=== PATIENT | male | born 1975 | race Caucasian/White ===

== ENCOUNTER 2017-02-17 06:59 | Inpatient (IN) | payer MEDICAID ==
[~2017-02-17] VITALS: Ht 185.4 cm; Wt 107.1 kg
[~2017-02-17 06:59] MED LIST: AMLO10TA2 PO; ATOR10TA PO; BACL20TA PO; BENA40TA7 PO; BUP100T PO; CARI-316 PO; CARV25TA PO; CARV25TA55 PO; CLOP75TA28 PO; DIPH25TA26 PO; GEMF600T3 PO; LATA0.00 OP; LITH300C3 PO; LOR05T PO; MECL25CH20 PO; MELA10TA3 PO; METO10TA3 PO; MILK250C2 PO; OMEP20CA74 PO; OXCA600T3 PO; PAR20T PO; PREG100C PO; ROPI0.5T18 PO; TRAZ100T2 PO
[2017-02-17] MEDS ORDERED: SODIUM CHLORIDE 0.9% 500 ML IVB ONE (07:08)
[2017-02-17] MEDS ORDERED: LEVOFLOXACIN 500MG 100 ML IV ONE (07:15)
[2017-02-17 07:41] LABS: Basophils # (auto) 0 uL; Basophils % (auto) 0.3 % (0.0-2.0); CONDITION Y; Eosinophils # (auto) 0.1 uL; Eosinophils % (auto) 1.1 % (0.0-7.0); Hematocrit 27.8 % (41.0-53.0); Hemoglobin 9.1 g/dL (13.5-17.5); Lymphocytes % (auto) 25.9 % (10.0-50.0); Mean Corpuscular Hemoglobin 28.1 pg (28.0-32.0); Mean Corpuscular Hgb Conc. 32.6 g/dL (32.0-36.0); Mean Corpuscular Volume 86.1 fL (80.0-100.0); Mean Platelet Volume 7.7 fL (7.4-10.4); Monocytes # (auto) 0.7 uL; Monocytes % (auto) 6.4 % (0.0-12.0); Neutrophils # (auto) 7.6 uL; Neutrophils % (auto) 66.3 % (37.0-80.0); Platelet Count (auto) 426 10^3/uL (140-450); Red Cell Distribution Width 15.8 % (11.6-16.0); White Blood Cell 11.5 10^3/uL (4.4-10.8)
[2017-02-17 07:57] LABS: INR 1.05 (0.9-1.15); Partial Thromboplastin Time 28.5 sec (22.64-33.71); Prothrombin Time 11.5 sec (9.37-12.3)
[2017-02-17 08:01] LABS: Albumin 2.2 g/dL (3.4-5.0); Anion Gap 9 (5-15); Aspartate Aminotransferase 15 U/L (15-37); BUN/Creatinine Ratio 21.6; Blood Urea Nitrogen 30 mg/dL (7-18); Calcium 8.6 mg/dL (8.5-10.1); Carbon Dioxide 25 mmol/L (21-32); Chloride 109 mmol/L (98-107); GFR African American 72 mL/min; GFR Non-African American 60 mL/min; Glucose 146 mg/dL (74-106); Magnesium 2.6 mg/dL (1.6-2.6); Potassium 5.3 mmol/L (3.5-5.1); Sodium 143 mmol/L (136-145)
[2017-02-17 08:16] LABS: Alkaline Phosphatase 162 U/L (45-117); Bilirubin, Total 0.3 mg/dL (0.2-1.0); Total Protein 8.5 g/dL (6.4-8.2)
[2017-02-17 08:28] LABS: Urine Bilirubin Negative (Negative); Urine Blood Negative /uL (Negative); Urine Color Yellow (Yellow); Urine Glucose Normal (Normal); Urine Hyaline Cast FEW /lpf (0 - 2); Urine Ketone Negative (Negative); Urine Nitrite Negative (Negative); Urine RBC 5 /hpf (0 - 3); Urine Squamous Epithelial Cell FEW /hpf (<5); Urine pH 5.5 (5.0-8.0)
[2017-02-17] MEDS ORDERED: MELATONIN PYRIDOXINE 5 MG PO PRN (08:45)
[2017-02-17] MEDS ORDERED: cefTRIAXone 1GM/50ML D5W 50 ML IV ONE (08:45)
[2017-02-17] MEDS ORDERED: LACTULOSE 20Gm/30ML SOLN PO PRN (08:45)
[2017-02-17] MEDS ORDERED: LORazepam 0.5 MG TAB PO PRN (08:45)
[2017-02-17] MEDS ORDERED: DEXTROSE (50%) 50ML SYRG IV PRN (08:45)
[2017-02-17] MEDS ORDERED: ACETAMINOPHEN 500 MG TAB PO PRN (08:45)
[2017-02-17] MEDS ORDERED: SODIUM POLYSTYRENE SULF 15GM/60ML SUSP PO ONE (08:45)
[2017-02-17] MEDS ORDERED: HYDROcodone-ACET 5/325MG TAB PO PRN (08:45)
[2017-02-17] MEDS ORDERED: TEMAZEPAM 15 MG CAP PO PRN (08:45)
[2017-02-17] MEDS ORDERED: MORPHINE SULFATE 4 MG/ML SYRG IV PRN (08:45)
[2017-02-17] MEDS ORDERED: ALBUTEROL SULF 2.5 MG/0.5ML(0.5%) NEB SOLN NEB PRN (08:45)
[2017-02-17] MEDS: SODIUM CHLORIDE 0.9% 1,000 ML IV SCH ×2 (09:26→17:56)
[2017-02-17] MEDS: CLINDAMYCIN 600MG IV 50 ML IV SCH ×2 (09:38→17:56)
[2017-02-17] MEDS: CARVEDILOL 12.5 MG TAB PO SCH ×2 (09:55→22:00)
[2017-02-17] MEDS: LITHIUM CARBONATE 300 MG TAB PO SCH ×2 (09:55→22:00)
[2017-02-17] MEDS: PANTOPRAZOLE 40 MG TAB PO SCH (09:56)
[2017-02-17] MEDS: amLODIPine BESYLATE 5 MG TAB PO SCH (09:56)
[2017-02-17] MEDS: buPROPion HCL 100 MG TAB PO SCH ×2 (09:56→22:28)
[2017-02-17] MEDS: PARoxetine 20 MG TAB PO SCH (09:56)
[2017-02-17] MEDS: OXcarbazepine 300 MG TAB PO SCH ×2 (09:56→22:28)
[2017-02-17] MEDS: PREGABALIN 25 MG CAP PO SCH ×2 (09:56→22:30)
[2017-02-17] MEDS: CLOPIDOGREL BISULFATE 75 MG TAB PO SCH (09:56)
[2017-02-17] MEDS: ENOXAPARIN SOD 40 MG/0.4 ML SYRINGE SC SCH (09:56)
[2017-02-17] MEDS: GEMFIBROZIL 600 MG TAB PO SCH ×2 (09:56→22:27)
[2017-02-17] MEDS ORDERED: PATIENTS OWN MEDICATION (Amlodipine Besylate 10 MG) PO SCH (10:00)
[2017-02-17] MEDS ORDERED: PATIENTS OWN MEDICATION (Carvedilol (Coreg) 25 MG) PO SCH (10:00)
[2017-02-17] MEDS ORDERED: OXCARBAZEPINE 600 MG PO SCH (10:00)
[2017-02-17] MEDS ORDERED: PATIENTS OWN MEDICATION (Benazepril Hcl 40 MG) PO SCH ×2 (10:00)
[2017-02-17] MEDS ORDERED: PREGABALIN 100 MG PO SCH (10:00)
[2017-02-17] MEDS ORDERED: LITHIUM CARBONATE 300 MG PO SCH (10:00)
[2017-02-17] MEDS ORDERED: PATIENTS OWN MEDICATION (Atorvastatin Calcium (Lipitor) 10 MG) PO SCH (10:00)
[2017-02-17] MEDS: ACCU-CHEK COMFORT CURVE STRIP VI SCH ×3 (12:01→22:00)
[2017-02-17] MEDS: InsuLIN REG 1unit/0.01ml Soln (100units/ml) SC SCH ×3 (12:11→23:01)
[2017-02-17 13:10] VITALS: BP 120/71
[2017-02-17 14:02] LABS: BUN/Creatinine Ratio 20.5; Calcium 8.4 mg/dL (8.5-10.1); Potassium 5.1 mmol/L (3.5-5.1)
[2017-02-17 16:52] VITALS: BP 142/75
[2017-02-17 18:32] LABS: Hematocrit 27.9 % (41.0-53.0); Hemoglobin 9.2 g/dL (13.5-17.5)
[2017-02-17 21:30] VITALS: BP 126/71
[2017-02-17] MEDS: LATANOPROST 0.005 % OPTH(EYE) SOL 2.5ML OP SCH (22:00)
[2017-02-17] MEDS: ROPINIROLE 0.5 MG PO SCH (22:00)
[2017-02-17] MEDS: ATORVASTATIN 20 MG TAB PO SCH (22:28)
[2017-02-18 01:23] LABS: Hemoglobin 8.5 g/dL (13.5-17.5)
[2017-02-18 01:34] VITALS: BP 126/71
[2017-02-18] MEDS: CLINDAMYCIN 600MG IV 50 ML IV SCH ×3 (02:05→17:22)
[2017-02-18] MEDS: SODIUM CHLORIDE 0.9% 1,000 ML IV SCH ×2 (04:44→16:44)
[2017-02-18 05:00] VITALS: BP 135/73
[2017-02-18 06:08] LABS: Basophils # (auto) 0.1 uL; Basophils % (auto) 0.8 % (0.0-2.0); CONDITION Y; Eosinophils # (auto) 0.2 uL; Hematocrit 27.7 % (41.0-53.0); Hemoglobin 9.1 g/dL (13.5-17.5); Lymphocytes # (auto) 3.2 uL; Lymphocytes % (auto) 38.6 % (10.0-50.0); Mean Corpuscular Hemoglobin 28.1 pg (28.0-32.0); Mean Corpuscular Hgb Conc. 32.8 g/dL (32.0-36.0); Mean Corpuscular Volume 85.6 fL (80.0-100.0); Mean Platelet Volume 7.6 fL (7.4-10.4); Monocytes # (auto) 0.7 uL; Monocytes % (auto) 8.2 % (0.0-12.0); Neutrophils # (auto) 4.1 uL; Neutrophils % (auto) 50.4 % (37.0-80.0); Platelet Count (auto) 364 10^3/uL (140-450); Red Cell Distribution Width 15.8 % (11.6-16.0); White Blood Cell 8.2 10^3/uL (4.4-10.8)
[2017-02-18] MEDS: ACCU-CHEK COMFORT CURVE STRIP VI SCH ×4 (06:23→21:34)
[2017-02-18] MEDS: LEVOFLOXACIN 500MG 100 ML IV SCH (06:23)
[2017-02-18] MEDS: InsuLIN REG 1unit/0.01ml Soln (100units/ml) SC SCH ×4 (06:23→21:54)
[2017-02-18 06:48] LABS: BUN/Creatinine Ratio 21.1; Bilirubin, Total 0.3 mg/dL (0.2-1.0); Calcium 8.4 mg/dL (8.5-10.1); Potassium 4.3 mmol/L (3.5-5.1); Total Protein 7.5 g/dL (6.4-8.2)
[2017-02-18 09:00] VITALS: BP 150/75
[2017-02-18] MEDS ORDERED: cefTRIAXone 1GM/50ML D5W 50 ML IV SCH (09:00)
[2017-02-18] MEDS: LITHIUM CARBONATE 300 MG TAB PO SCH ×3 (10:00→21:32)
[2017-02-18] MEDS: ENOXAPARIN SOD 40 MG/0.4 ML SYRINGE SC SCH (10:11)
[2017-02-18] MEDS: buPROPion HCL 100 MG TAB PO SCH ×2 (10:12→21:33)
[2017-02-18] MEDS: PREGABALIN 25 MG CAP PO SCH ×2 (10:12→21:33)
[2017-02-18] MEDS: PARoxetine 20 MG TAB PO SCH (10:12)
[2017-02-18] MEDS: PANTOPRAZOLE 40 MG TAB PO SCH (10:12)
[2017-02-18] MEDS: OXcarbazepine 300 MG TAB PO SCH ×2 (10:12→21:33)
[2017-02-18] MEDS: GEMFIBROZIL 600 MG TAB PO SCH ×2 (10:12→21:33)
[2017-02-18] MEDS: CARVEDILOL 12.5 MG TAB PO SCH ×2 (10:13→21:32)
[2017-02-18] MEDS: amLODIPine BESYLATE 5 MG TAB PO SCH (10:14)
[2017-02-18] MEDS: CLOPIDOGREL BISULFATE 75 MG TAB PO SCH (10:20)
[2017-02-18] MEDS: BUDESONIDE (INHALATION) 0.5 MG/2 ML NEB NEB SCH ×2 (10:40→18:26)
[2017-02-18 13:00] VITALS: BP 157/82
[2017-02-18 16:58] VITALS: BP 139/78
[2017-02-18] MEDS: LATANOPROST 0.005 % OPTH(EYE) SOL 2.5ML OP SCH (21:32)
[2017-02-18] MEDS: ROPINIROLE 0.5 MG PO SCH (21:32)
[2017-02-18 22:00] VITALS: BP 144/77
[2017-02-19] MEDS: SODIUM CHLORIDE 0.9% 1,000 ML IV SCH ×3 (00:22→21:29)
[2017-02-19] MEDS: CLINDAMYCIN 600MG IV 50 ML IV SCH ×2 (02:56→09:27)
[2017-02-19 05:59] VITALS: BP 149/76
[2017-02-19] MEDS: ACCU-CHEK COMFORT CURVE STRIP VI SCH ×4 (06:30→22:16)
[2017-02-19] MEDS: LEVOFLOXACIN 500MG 100 ML IV SCH (06:30)
[2017-02-19] MEDS: BUDESONIDE (INHALATION) 0.5 MG/2 ML NEB NEB SCH (06:58)
[2017-02-19 07:20] LABS: Basophils # (auto) 0.1 uL; Basophils % (auto) 0.6 % (0.0-2.0); CONDITION Y; Eosinophils # (auto) 0.2 uL; Hematocrit 28.6 % (41.0-53.0); Hemoglobin 9.4 g/dL (13.5-17.5); Lymphocytes # (auto) 2.9 uL; Lymphocytes % (auto) 30.7 % (10.0-50.0); Mean Corpuscular Hemoglobin 27.9 pg (28.0-32.0); Mean Corpuscular Hgb Conc. 32.8 g/dL (32.0-36.0); Mean Corpuscular Volume 85.1 fL (80.0-100.0); Monocytes # (auto) 0.6 uL; Monocytes % (auto) 6.3 % (0.0-12.0); Neutrophils # (auto) 5.7 uL; Neutrophils % (auto) 60.4 % (37.0-80.0); Platelet Count (auto) 359 10^3/uL (140-450); Red Cell Distribution Width 15.4 % (11.6-16.0); White Blood Cell 9.5 10^3/uL (4.4-10.8)
[2017-02-19 07:44] LABS: Albumin 2.1 g/dL (3.4-5.0); BUN/Creatinine Ratio 13.5; Bilirubin, Total 0.2 mg/dL (0.2-1.0); Calcium 8.3 mg/dL (8.5-10.1); Potassium 4.2 mmol/L (3.5-5.1); Total Protein 7.8 g/dL (6.4-8.2)
[2017-02-19 08:00] VITALS: BP 158/86
[2017-02-19 09:00] VITALS: BP 158/86
[2017-02-19] MEDS: CARVEDILOL 12.5 MG TAB PO SCH ×2 (09:28→22:14)
[2017-02-19] MEDS: buPROPion HCL 100 MG TAB PO SCH ×2 (09:29→22:16)
[2017-02-19] MEDS: OXcarbazepine 300 MG TAB PO SCH ×2 (09:29→22:12)
[2017-02-19] MEDS: BENAZEPRIL HCL 10 MG TAB PO SCH (09:29)
[2017-02-19] MEDS: PARoxetine 20 MG TAB PO SCH (09:30)
[2017-02-19] MEDS: CLOPIDOGREL BISULFATE 75 MG TAB PO SCH (09:30)
[2017-02-19] MEDS: PANTOPRAZOLE 40 MG TAB PO SCH (09:30)
[2017-02-19] MEDS: GEMFIBROZIL 600 MG TAB PO SCH ×2 (09:30→22:14)
[2017-02-19] MEDS: amLODIPine BESYLATE 5 MG TAB PO SCH (09:31)
[2017-02-19] MEDS: LITHIUM CARBONATE 300 MG TAB PO SCH ×2 (09:33→21:30)
[2017-02-19] MEDS: PREGABALIN 25 MG CAP PO SCH ×2 (09:33→22:08)
[2017-02-19] MEDS: ENOXAPARIN SOD 40 MG/0.4 ML SYRINGE SC SCH (09:34)
[2017-02-19] MEDS: PROMETHAZINE HCL 25 MG/ML 1ML IV PRN ×3 (11:34→21:29)
[2017-02-19] MEDS: InsuLIN REG 1unit/0.01ml Soln (100units/ml) SC SCH ×4 (12:40→22:16)
[2017-02-19 13:00] VITALS: BP 162/86
[2017-02-19 17:00] VITALS: BP 158/86
[2017-02-19] MEDS: PRO-STAT 64 30ML PO SCH (17:02)
[2017-02-19] MEDS: ROPINIROLE 0.5 MG PO SCH (21:29)
[2017-02-19] MEDS: LATANOPROST 0.005 % OPTH(EYE) SOL 2.5ML OP SCH (21:30)
[2017-02-19] MEDS: ASCORBIC ACID 500 MG TAB PO SCH (22:12)
[2017-02-19] MEDS: ATORVASTATIN 20 MG TAB PO SCH (22:16)
[2017-02-19 22:23] VITALS: BP 163/86
[2017-02-20] MEDS: BUDESONIDE (INHALATION) 0.5 MG/2 ML NEB NEB SCH ×3 (00:51→22:13)
[2017-02-20 05:33] VITALS: BP 139/74
[2017-02-20] MEDS: ACCU-CHEK COMFORT CURVE STRIP VI SCH ×4 (06:29→22:16)
[2017-02-20] MEDS: SODIUM CHLORIDE 0.9% 1,000 ML IV SCH ×2 (06:29→17:52)
[2017-02-20] MEDS: InsuLIN REG 1unit/0.01ml Soln (100units/ml) SC SCH ×4 (06:30→22:00)
[2017-02-20] MEDS: LEVOFLOXACIN 500MG 100 ML IV SCH (06:34)
[2017-02-20 08:00] VITALS: BP 142/79
[2017-02-20] MEDS: PRO-STAT 64 30ML PO SCH ×2 (08:02→18:09)
[2017-02-20] MEDS: PREGABALIN 25 MG CAP PO SCH ×2 (09:40→22:16)
[2017-02-20] MEDS: MULTIPLE VITAMIN TAB PO SCH (09:41)
[2017-02-20] MEDS: OXcarbazepine 300 MG TAB PO SCH ×2 (09:41→22:16)
[2017-02-20] MEDS: CLOPIDOGREL BISULFATE 75 MG TAB PO SCH (09:41)
[2017-02-20] MEDS: BENAZEPRIL HCL 10 MG TAB PO SCH (09:41)
[2017-02-20] MEDS: GEMFIBROZIL 600 MG TAB PO SCH ×2 (09:41→22:17)
[2017-02-20] MEDS: ASCORBIC ACID 500 MG TAB PO SCH ×2 (09:41→22:16)
[2017-02-20] MEDS: buPROPion HCL 100 MG TAB PO SCH ×2 (09:42→22:16)
[2017-02-20] MEDS: CARVEDILOL 12.5 MG TAB PO SCH ×2 (09:42→22:16)
[2017-02-20] MEDS: PARoxetine 20 MG TAB PO SCH (09:42)
[2017-02-20] MEDS: PANTOPRAZOLE 40 MG TAB PO SCH (09:43)
[2017-02-20] MEDS: ENOXAPARIN SOD 40 MG/0.4 ML SYRINGE SC SCH (09:43)
[2017-02-20] MEDS: amLODIPine BESYLATE 5 MG TAB PO SCH (09:43)
[2017-02-20] MEDS: LITHIUM CARBONATE 300 MG TAB PO SCH ×2 (09:46→22:00)
[2017-02-20 12:00] VITALS: BP 171/86
[2017-02-20] MEDS ORDERED: cefTRIAXone 1GM/50ML D5W 50 ML IV ONE (15:45)
[2017-02-20 17:04] VITALS: BP 166/80
[2017-02-20 22:00] VITALS: BP 152/68
[2017-02-20] MEDS: LATANOPROST 0.005 % OPTH(EYE) SOL 2.5ML OP SCH (22:00)
[2017-02-20] MEDS: ROPINIROLE 0.5 MG PO SCH (22:00)
[2017-02-21 05:30] VITALS: BP 144/78
[2017-02-21] MEDS: SODIUM CHLORIDE 0.9% 1,000 ML IV SCH ×2 (05:43→12:44)
[2017-02-21] MEDS: ACCU-CHEK COMFORT CURVE STRIP VI SCH ×2 (07:00→12:59)
[2017-02-21] MEDS: InsuLIN REG 1unit/0.01ml Soln (100units/ml) SC SCH ×2 (07:00→12:59)
[2017-02-21 09:00] VITALS: BP 150/81
[2017-02-21] MEDS ORDERED: cefTRIAXone 1GM/50ML D5W 50 ML IV SCH (09:00)
[2017-02-21] MEDS: LITHIUM CARBONATE 300 MG TAB PO SCH (10:00)
[2017-02-21] MEDS: BUDESONIDE (INHALATION) 0.5 MG/2 ML NEB NEB SCH (10:28)
[2017-02-21] MEDS: GEMFIBROZIL 600 MG TAB PO SCH (10:30)
[2017-02-21] MEDS: PREGABALIN 25 MG CAP PO SCH (10:32)
[2017-02-21] MEDS: PANTOPRAZOLE 40 MG TAB PO SCH (10:32)
[2017-02-21] MEDS: MULTIPLE VITAMIN TAB PO SCH (10:32)
[2017-02-21] MEDS: BENAZEPRIL HCL 10 MG TAB PO SCH (10:34)
[2017-02-21] MEDS: OXcarbazepine 300 MG TAB PO SCH (10:34)
[2017-02-21] MEDS: ASCORBIC ACID 500 MG TAB PO SCH (10:35)
[2017-02-21] MEDS: CLOPIDOGREL BISULFATE 75 MG TAB PO SCH (10:35)
[2017-02-21] MEDS: PARoxetine 20 MG TAB PO SCH (10:35)
[2017-02-21] MEDS: amLODIPine BESYLATE 5 MG TAB PO SCH (10:36)
[2017-02-21] MEDS: buPROPion HCL 100 MG TAB PO SCH (10:36)
[2017-02-21] MEDS: CARVEDILOL 12.5 MG TAB PO SCH (10:36)
[2017-02-21] MEDS: ENOXAPARIN SOD 40 MG/0.4 ML SYRINGE SC SCH (10:37)
[2017-02-21] MEDS: PRO-STAT 64 30ML PO SCH (10:37)
== END 2017-02-21 12:50 | DRG 249 ==
LOC: ER 07:00 → OVERFLOW 07:01 → WEST WING 10:09 → TELE-WESTW 02-18 00:40
PROVIDERS: ADMIT Internal Medicine; ATTEND Internal Medicine
DX: K52.9 Noninfective gastroenteritis and colitis, unspecified (principal); I11.0 Hypertensive heart disease with heart failure; E11.40 Type 2 diabetes mellitus with diabetic neuropathy, unspecified; I50.9 Heart failure, unspecified; L89.523 Pressure ulcer of left ankle, stage 3; E87.8 Other disorders of electrolyte and fluid balance, not elsewhere classified; E86.0 Dehydration; D63.8 Anemia in other chronic diseases classified elsewhere; E87.5 Hyperkalemia; M54.9 Dorsalgia, unspecified; E78.5 Hyperlipidemia, unspecified; N39.0 Urinary tract infection, site not specified; F31.9 Bipolar disorder, unspecified; H40.9 Unspecified glaucoma; G89.29 Other chronic pain; E11.65 Type 2 diabetes mellitus with hyperglycemia; Z74.01 Bed confinement status; I69.354 Hemiplegia and hemiparesis following cerebral infarction affecting left non-dominant side; Z88.0 Allergy status to penicillin; Z79.899 Other long term (current) drug therapy; Z82.0 Family history of epilepsy and other diseases of the nervous system; Z82.49 Family history of ischemic heart disease and other diseases of the circulatory system; Z83.3 Family history of diabetes mellitus; Z82.61 Family history of arthritis; Z81.1 Family history of alcohol abuse and dependence
CPT/HCPCS: 36415; 51702; 70450; 71010; 73600; 80048; 80053; 80061; 80178; 81001; 82150; 82270; 82378; 82962; 83036; 83605; 83690; 83735; 84484; 85014; 85018; 85025; 85045; 85610; 85652; 85730; 86141; 86850; 86900; 86901; 87040; 87077; 87081; 87086; 87186; 87205; 93005; 94640; 94761; 96365; 97110; 97116; 97163; 97530; J0696; J1815; J1956; J3490